=== PATIENT | male | born 1990 | race African-American/Black ===

== ENCOUNTER 2017-05-05 19:54 | Emergency (ER) | payer SELFPAY ==
[~2017-05-05] VITALS: Ht 185.4 cm; Wt 83.0 kg
[2017-05-05 19:59] VITALS: BP 136/81
[2017-05-05] MEDS ORDERED: KETOROLAC 60MG/2ML VIAL IM ONE (21:45)
== END 2017-05-05 22:08 | disposition home or self-care (01) ==
LOC: ER 20:20
DX: B34.9 Viral infection, unspecified (principal); F17.200 Nicotine dependence, unspecified, uncomplicated; F12.10 Cannabis abuse, uncomplicated
CPT/HCPCS: 96372; 99283; J1885

== ENCOUNTER 2018-07-20 10:56 | Emergency (ER) | payer SELFPAY ==
[~2018-07-20] VITALS: Ht 185.4 cm; Wt 83.0 kg
[2018-07-20 11:26] VITALS: BP 139/105
[2018-07-20] MEDS ORDERED: VISCOUS LIDOCAINE 2% 15 ML UDC MM ONE (13:15)
== END 2018-07-20 13:34 | disposition home or self-care (01) ==
LOC: ER 11:42
DX: J02.9 Acute pharyngitis, unspecified (principal); K21.9 Gastro-esophageal reflux disease without esophagitis; F17.200 Nicotine dependence, unspecified, uncomplicated; F12.10 Cannabis abuse, uncomplicated
CPT/HCPCS: 99282

== ENCOUNTER 2023-02-14 22:20 | Emergency (ER) | payer MEDICAID ==
[~2023-02-14] VITALS: Ht 185.4 cm; Wt 99.0 kg
[~2023-02-14 22:20] MED LIST: NAPR-681 MT
[2023-02-14 22:23] VITALS: O2SAT 100
[2023-02-15] MEDS ORDERED: KETOROLAC 30MG/ML VIAL IM ONE (01:30)
[2023-02-15 01:46] VITALS: BP 143/95
[2023-02-15] MEDS ORDERED: LIDO700A15 TP (02:00)
[2023-02-15] MEDS ORDERED: CYCL10TA21 MT (02:00)
[2023-02-15] MEDS ORDERED: NAPR-1176 MT (02:00)
[2023-02-15 02:19] VITALS: PULSE 80; RESP 16; TEMP 97.3
== END 2023-02-15 02:26 | disposition home or self-care (01) ==
LOC: ER 22:20
DX: M54.50 Low back pain, unspecified (principal); F12.10 Cannabis abuse, uncomplicated
CPT/HCPCS: 99283; 96372; J1885; Z7610